=== PATIENT | male | born 1965 ===

== ENCOUNTER 2017-09-20 02:29 | Emergency (ER) | payer SELFPAY ==
[2017-09-20] MEDS ORDERED: NS 1,000 ML IV ONE (02:32)
--- NOTE | 2017-09-20 02:37 | EDPHY ---
H & P HPI/ROS: HPI CHIEF COMPLAINT: Cold exposure. HISTORY OF PRESENT ILLNESS: This patient is a 52-year-old male, presents emergency room by EMS for being out in the cold. Police made contact with him found him walking from a field. Patient went up to the police and states that he was very cold. Upon arrival to the emergency room he is noted to be hypothermic. He is dressed in multiple layers of clothes. His pants were wet. Additionally the tennis shoes and socks he will wearing was wet. Removed off his wet clothing. He has been placed immediately a bear hugger with warm blankets. He will receive warm IV fluids. Will check basic blood work including electrolytes and alcohol. Check his glucose, and warm him up. Will get a rectal temperature. Rectal temperature 36.3degrees. Patient reports evening he was complaining of a headache earlier, in he took 2 pills he describes them orange in color from a homeless person. He reports that made him feel intoxicated. Past Medical History: Denies significant medical history Past Surgical History: Denies recent surgery Social History: Denies daily use of alcohol drugs. Family History: Noncontributory ROS REVIEW OF SYSTEMS: limited due the patient's clinical intoxication Exam Constitutional Slepy, hypothermia, cold extremities, triage nursing summary reviewed, vital signs reviewed, awake/alert. Eyes normal conjunctivae and sclera, EOMI, PERRLA. HENT normal inspection, atraumatic, moist mucus membranes, no epistaxis, neck supple/ no meningismus, no raccoon eyes. Respiratory clear to auscultation bilaterally, normal breath sounds, no respiratory distress, no wheezing. Cardiovascular rate normal, regular rhythm, no murmur, no edema, distal pulses normal. Gastrointestinal soft, non-tender, no rebound, no guarding, normal bowel sounds, no distension, no pulsatile mass. Genitourinary no CVA tenderness. Musculoskeletal no midline vertebral tenderness, full range of motion, no calf swelling, no tenderness of extremities, no meningismus, good pulses, neurovascularly intact. All 4 extremities are cool to touch. However there is no skin changes on exam. He has good distal pulses. Delayed cap refill due to help cold ER. Skin pink, warm, & dry, no rash, skin atraumatic. Neurologic awake, alert and oriented x 3, AAOx3, moves all 4 extremities equally, motor intact, sensory intact, CN II-XII intact, Psychiatric normal mood/affect. Heme/Lymph/Immune no lymphadenopathy. Differential Diagnosis: Includes but not limited to in a particular order acute alcohol intoxication, cold exposure, hypothermia, drug intoxication, electrolyte disturbance Medical Decision Making: Plan for this patient obtain core temperature, warmed with warm blankets and a Bear Hugger, warm IV fluids, check electrolytes, additionally check alcohol level, drug screen and glucose. Re-evaluation: 0550AM: Patient ambulatory Warm. No longer hypothermic, no evidence of severe morales bite. Ambulatory well. NAD. Has no complaints. Ready for d/c. Stable gait. Source: Patient, Police, EMS Constitutional: Initial Vital Signs Temperature (C) 36.3 C 09/20/17 02:42 Heart Rate 74 09/20/17 02:42 Respiratory Rate 18 09/20/17 02:42 Blood Pressure 180/104 H 09/20/17 02:42 O2 Sat (%) 96 09/20/17 02:42 O2 Delivery Mode Room Air Allergies/Adverse Reactions: No Known Allergies Allergy (Unverified 09/20/17 02:47) Medical Decision Making - Data Points Laboratory Results: Laboratory Results 09/20/17 02:58 09/20/17 02:58 09/20/17 09/20/17 02:58 02:58 WBC 5.73 10^3/uL 10^3/uL (3.80-9.50) RBC 4.98 10^6/uL 10^6/uL (4.40-6.38) Hgb 15.5 g/dL g/dL (13.7-17.5) Hct 44.4 % % (40.0-51.0) MCV 89.2 fL fL (81.5-99.8) MCH 31.1 pg pg (27.9-34.1) MCHC 34.9 g/dL g/dL (32.4-36.7) RDW 12.7 % % (11.5-15.2) Plt Count 180 10^3/uL 10^3/uL (150-400) MPV 9.3 fL fL (8.7-11.7) Neut % (Auto) 71.0 % % (39.3-74.2) Lymph % (Auto) 21.5 % % (15.0-45.0) [place] % (Auto) 4.4 % L % (4.5-13.0) Eos % (Auto) 2.4 % % (0.6-7.6) Baso % (Auto) 0.5 % % (0.3-1.7) Nucleat RBC Rel Count 0.0 % % (0.0-0.2) Absolute Neuts (auto) 4.07 10^3/uL 10^3/uL (1.70-6.50) Absolute Lymphs (auto) 1.23 10^3/uL 10^3/uL (1.00-3.00) Absolute Monos (auto) 0.25 10^3/uL L 10^3/uL (0.30-0.80) Absolute Eos (auto) 0.14 10^3/uL 10^3/uL (0.03-0.40) Absolute Basos (auto) 0.03 10^3/uL 10^3/uL (0.02-0.10) Absolute Nucleated RBC 0.00 10^3/uL 10^3/uL (0-0.01) Immature Gran % 0.2 % % (0.0-1.1) Immature Gran # 0.01 10^3/uL 10^3/uL (0.00-0.10) Sodium 142 mEq/L mEq/L (135-145) Potassium 3.3 mEq/L L mEq/L (3.5-5.2) Chloride 107 mEq/L mEq/L (97-110) Carbon Dioxide 24 mEq/l mEq/l (22-31) Anion Gap 11 mEq/L mEq/L (8-16) BUN 15 mg/dL mg/dL (7-23) Creatinine 0.8 mg/dL mg/dL (0.7-1.3) Estimated GFR > 60 Glucose 164 mg/dL H mg/dL (70-100) Calcium 9.7 mg/dL mg/dL (8.5-10.4) Ethyl Alcohol < 10 mg/dL mg/dL (0-10) Medications Given: Discontinued Medications Sodium Chloride (Ns) 1,000 mls @ 0 mls/hr IV EDNOW ONE; Wide Open PRN Reason: Protocol Stop: 09/20/17 02:33 Last Admin: 09/20/17 02:58 Dose: 1,000 mls Departure - Departure Disposition: Home, Routine, Self-Care Clinical Impression: Hypothermia Qualifiers: Encounter type: initial encounter Qualified Code(s): T68.XXXA - Hypothermia, initial encounter Cold exposure Qualifiers: Encounter type: initial encounter Qualified Code(s): T69.9XXA - Effect of reduced temperature, unspecified, initial encounter Condition: Good Instructions: Acute Hypothermia (ED) Referrals: Patient,NotPresent [Primary Care Provider] - As per Instructions
[2017-09-20 02:56] VITALS: TEMP 97.3
[2017-09-20 03:05] LABS: PLATELET COUNT 180 10^3/uL (150-400)
[2017-09-20 06:41] VITALS: BP 158/108; PULSE 71; RESP 18; O2SAT 93
== END 2017-09-20 06:42 | disposition home or self-care (01) ==
DX: T69.9XXA Effect of reduced temperature, unspecified, initial encounter (principal); T68.XXXA Hypothermia, initial encounter; E86.9 Volume depletion, unspecified; X31.XXXA Exposure to excessive natural cold, initial encounter
CPT/HCPCS: 80305; G0480